=== PATIENT | male | born 1975 | race Caucasian/White ===

== ENCOUNTER 2024-08-18 12:29 | Emergency (ER) | payer OTHER ==
[2024-08-18 14:01] LABS: BASOPHILS ABSOLUTE AUTO 0.1 K/mm3 (0.0-0.2); BASOPHILS PERCENT AUTO 1.2 % (0.0-1.0); EOSINOPHILS ABSOLUTE AUTO 0.1 K/mm3 (0.0-0.4); EOSINOPHILS PERCENT AUTO 1.1 % (0.0-6.0); HEMATOCRIT 40.4 % (42.0-52.0); HEMOGLOBIN 14.2 gm/dl (14.0-18.0); IMMATURE GRAN PERCENT AUTO 2.1 % (0.0-0.4); LYMPHOCYTES ABSOLUTE AUTO 1.3 K/mm3 (1.0-4.8); LYMPHOCYTES PERCENT AUTO 13.3 % (24.0-44.0); MEAN CORPUSCULAR HEMOGLOBIN 37.2 pg (28.0-32.0); MEAN CORPUSCULAR HGB CONC 35.1 g/dl (32.0-36.0); MEAN CORPUSCULAR VOLUME 105.8 fl (83.0-99.0); MEAN PLATELET VOLUME 10.4 fl (9.4-12.4); MONOCYTES ABSOLUTE AUTO 1.2 K/mm3 (0.0-0.8); MONOCYTES PERCENT AUTO 12.8 % (0.0-8.0); NEUTROPHILS ABSOLUTE AUTO 6.7 K/mm3 (1.8-7.7); NEUTROPHILS PERCENT AUTO 69.5 % (41.0-71.0); PLATELET COUNT,PLT 439 K/mm3 (150-400); RED BLOOD CELL COUNT 3.82 M/mm3 (4.52-5.90); WHITE BLOOD CELL COUNT,WBC 9.68 K/mm3 (3.9-11.3)
[2024-08-18 14:24] LABS: INR 1.2; PROTHROMBIN TIME 12.6 SECONDS (9.7-12.0)
[2024-08-18 14:47] LABS: A/G RATIO 0.5 (1-2); ALBUMIN 2.6 g/dl (3.4-5.0); ANION GAP 15.6 (5-15); BILIRUBIN TOTAL 1.1 mg/dL (0.2-1.0); BUN/CREATININE RATIO 14.3 (14-18); CALCIUM 9.8 mg/dL (8.5-10.1); CREATININE 0.7 mg/dL (0.7-1.3); EST CRCL DRUG DOSING (CG) 137.56 mL/min; POTASSIUM,K 3.6 mEq/L (3.5-5.1); PROTEIN TOTAL,TP 7.8 g/dl (6.4-8.2)
[2024-08-18 15:12] LABS: MAGNESIUM 1.8 mg/dL (1.8-2.4); TSH 4.579 uIU/mL (0.358-3.74)
[2024-08-18 15:19] LABS: T4 FREE 1.3 ng/dL (0.76-1.46)
[2024-08-21 12:46] LABS: LYME EIA IGG 0.19 IV (<=0.90); LYME EIA IGM 0.16 IV (<=0.90); LYME MOD 2-TIER TESTING INTERP Negative (Negative); LYME VLSE1/PEPC10 ABS, ELISA 1.57 IV (<=0.90)
== END 2024-08-18 15:45 | disposition home or self-care (01) ==
LOC: JD.ED 12:29
DX: M25.521 Pain in right elbow (principal); M25.562 Pain in left knee; M25.561 Pain in right knee; F10.90 Alcohol use, unspecified, uncomplicated; I10 Essential (primary) hypertension; R94.6 Abnormal results of thyroid function studies; J45.909 Unspecified asthma, uncomplicated; Z90.49 Acquired absence of other specified parts of digestive tract; F17.200 Nicotine dependence, unspecified, uncomplicated; Z88.8 Allergy status to other drugs, medicaments and biological substances; Z88.1 Allergy status to other antibiotic agents
CPT/HCPCS: 36415; 71045; 71045-26; 80053; 82550; 83735; 83880; 84439; 84443; 85025; 85610; 85652; 86308; 86618; 93005; 99285